=== PATIENT | female | born 1965 | race Caucasian/White ===

== ENCOUNTER 2016-11-18 18:53 | Emergency (ER) | payer BC ==
[~2016-11-18] VITALS: Ht 165.1 cm; Wt 68.2 kg
[2016-11-18 19:01] VITALS: Ht 165.1 cm; Wt 68.2 kg
[2016-11-18 20:33] LABS: BASO % 0.5 %; BASO ABS # 0.03 K/uL (0-0.2); COMPLETE YES; EOS % 2.9 %; HEMATOCRIT 36.2 % (37-47); IG% 0.3 %; LYMPH % 30.3 %; LYMPH ABS # 1.85 K/uL (1.2-3.4); MEAN CORPUSCULAR HEMOGLOBIN 30.2 pg (25-34); MEAN CORPUSCULAR HGB CONC 33.1 g/dl (32-36); MEAN PLATELET VOLUME 9.9 fL (7.4-10.4); MONO % 13.6 %; NEUT % 52.4 %; PLATELET COUNT 245 K/uL (130-400); RED BLOOD COUNT 3.98 M/uL (4.2-5.4); WHITE BLOOD COUNT 6.11 K/uL (4.8-10.8)
[2016-11-18 20:38] VITALS: O2SAT 100
[2016-11-18 20:53] LABS: ALT/SGPT 21 U/L (12-78); BLOOD UREA NITROGEN 15 mg/dl (7-18); BUN/CREATININE RATIO 13.5 (10-20); CALCIUM 8.6 mg/dl (8.5-10.1); CARBON DIOXIDE 25 mmol/L (21-32); CHLORIDE 104 mmol/L (98-107); GLUCOSE 79 mg/dl (70-99); POTASSIUM 3.4 mmol/L (3.5-5.1); SODIUM 138 mmol/L (136-145)
--- NOTE | 2016-11-18 20:56 | DIAGNOSTIC IMAGING REPORT ---
CHEST ONE VIEW PORTABLE CLINICAL HISTORY: Chest pain. COMPARISON STUDY: No previous studies for comparison. FINDINGS: There is a 1 cm nodular density within the left mid to upper lung. Lungs are otherwise clear. Pulmonary vascularity is normal. There is no pneumothorax or pleural effusion. Cardiomediastinal silhouette is normal. IMPRESSION: 1 cm nodular opacity within the mid to upper left lung. This may be artifactual although a pulmonary nodule or minimal airspace disease could appear similar. Follow-up PA and shallow oblique radiographs of the chest are recommended to exclude a pulmonary nodule. Electronically signed by: Stepan Thornton M.D. 11/18/2016 8:54 PM Dictated Date/Time: 11/18/2016 8:52 PM
[2016-11-18 20:57] LABS: POINT OF CARE TROPONIN I < 0.030 ng/ml (0-0.045)
[2016-11-18 20:58] LABS: ALKALINE PHOSPHATASE 59 U/L (45-117); AST/SGOT 20 U/L (15-37); CKMB/CK RATIO 1.3 (0-3.0)
[2016-11-18 21:03] LABS: PREG INTERNAL NEGATIVE QC NEG CLEAR BACKGROUND; PREG INTERNAL POSITIVE QC POS CONTROL LINE
[2016-11-18] MEDS ORDERED: OPTIRAY 320 IV PRN (21:45)
--- NOTE | 2016-11-18 22:45 | DIAGNOSTIC IMAGING REPORT ---
CT ANGIOGRAPHY OF THE CHEST, PULMONARY EMBOLUS PROTOCOL CLINICAL HISTORY: Left-sided chest pain. Elevated d-dimer. COMPARISON STUDY: Chest radiograph November 18, 2016. TECHNIQUE: Following IV administration of 99 mL of Optiray-320, helical axial images of the chest were obtained utilizing the pulmonary embolus protocol. Maximal intensity projections and sagittal and coronal reformats were viewed on an independent 3D workstation. IV contrast was administered without complication. A dose lowering technique was utilized adhering to the principles of ALARA. CT DOSE: 247.05 mGy.cm FINDINGS: No pulmonary emboli are identified. There is no evidence of thoracic aortic dissection. The size of the heart is normal. There is no pericardial effusion. No enlarged axillary, mediastinal or hilar lymph nodes are present. Note is made of an ill-defined 1 cm subpleural nodule within left upper lobe shown on image 209 of 321. There are mild tree-in-bud nodules within the right lower lobe with scattered additional ill-defined right lower lobe nodules. The central airways are patent. No pneumothorax or pleural effusion is present. Bony thorax and upper abdomen are unremarkable. IMPRESSION: 1. No pulmonary emboli identified. 2. 1 cm irregular subpleural left upper lobe nodule. This could be infectious or neoplastic. A follow-up chest CT in one month is recommended given the possibility of a neoplasm. 3. Mild tree-in-bud nodules within the right lower lobe which suggest a mild infectious bronchiolitis. Electronically signed by: Stepan Thornton M.D. 11/18/2016 10:44 PM Dictated Date/Time: 11/18/2016 10:34 PM
[2016-11-19] MEDS ORDERED: AZIT250T PO (00:15)
[2016-11-19] MEDS ORDERED: AZITHROMYCIN 250 MG TAB PO ONE (00:15)
[2016-11-19 00:44] VITALS: BP 114/71; PULSE 72; TEMP 36.6; O2SAT 100
--- NOTE | 2016-11-19 03:04 | EMERGENCY ROOM VISIT NOTE ---
History Report prepared by Kim: Brenden Patel Under the Supervision of: Dr. Srinivasan Silva M.D. First contact with patient: 20:22 Chief Complaint: CHEST PAIN Stated Complaint: CHEST TIGHTNESS AND OCCASIONAL PAIN IN LEFT Nursing Triage Summary: Patient c/o of continous chest pain since 6 pm. Denies SOB, n/v/d. History of Present Illness The patient is a 50 year old female who presents to the Emergency Room with complaints of chest pain that started at 1730. The patient rates her pain as a 5 /10 in severity. She describes the pain as a pressure and dull ache. She states that she was playing [employer] yesterday, but denies any injury. The patient states that today she dropped her daughter off at the bus stop around 1730 and then had an alcoholic beverage. The patient states that she started to feel ill and experienced chest pain, sporadic left arm pain, and neck pain following drinking. She states that the pain started as a pressure then turned into a pain. The patient admits that the pain is now resolved, but she can feel a dull ache when moving her arm. The patient admits to a cough for the past several weeks. She admits that her PCP is Dr. Ellis of [facility] and she sees Dr. Schaffer , Cardiology for her history of PFO, which she admits is still open, and occasionally experiences palpitations. The patient denies any history of hypertension, diabetes, hyperlipidemia, and a family history of heart problems. She denies smoking and frequent exercise, but admits that she walks around frequently. The patient states that she has been stress lately due to her job as an operation person for the [employer], recent memorial for her recently mother, and her daughters being away from home. The patient denies recent travel, arm pain, jaw pain, and chest pain upon exertion in the last month, LOC, headache, fevers, chills, diaphoresis, visual changes, breathing difficulties, nausea, vomiting, abdominal pain, back pain, melena, hematochezia , urinary symptoms, numbness, weakness, lymphadenopathy, rash, or other complaints. Source of History: patient Onset: 1730 Position: chest Symptom Intensity: 5/10 Quality: ache, pressure Timing: resolved Associated Symptoms: + neck pain Review of Systems See HPI for pertinent positives and negatives. A total of ten systems were reviewed and were otherwise negative. Past Medical & Surgical Medical Problems: (1) PFO (patent foramen ovale) Family History Patient reports no known family medical history. Social History Smoking Status: Former Smoker Alcohol Use: occasionally Marital Status: Housing Status: lives with family Occupation Status: employed Current/Historical Medications Scheduled Azithromycin (Zithromax), 250 MG PO DAILY Allergies Coded Allergies: Promethazine (Unverified Adverse Reaction, Unknown, 04/28/09) Physical Exam Vital Signs Date Time Temp Pulse Resp B/P (MAP) Pulse Ox O2 Delivery O2 Flow Rate FiO2 11/19/16 00:44 36.6 72 18 114/71 100 11/18/16 23:39 66 18 108/71 99 Room Air 11/18/16 21:50 61 21 117/74 100 Room Air 11/18/16 20:38 100 11/18/16 20:16 65 108/82 100 11/18/16 20:11 67 11/18/16 19:03 99 Room Air 11/18/16 19:01 36.6 71 18 124/78 99 Room Air Physical Exam GENERAL: Awake, alert, well-appearing, in no distress HENT: Normocephalic, atraumatic. Oropharynx unremarkable. EYES: Normal conjunctiva. Sclera non-icteric. NECK: Supple. No nuchal rigidity. FROM. No JVD. RESPIRATORY: Clear to auscultation. CARDIAC: Regular rate, normal rhythm. Extremities warm and well perfused. Pulses equal. ABDOMEN: Soft, non-distended. No tenderness to palpation. No rebound or guarding. No masses. RECTAL: Deferred. MUSCULOSKELETAL: Chest examination reveals no tenderness. The back is symmetrical on inspection without obvious abnormality. There is no CVA tenderness to palpation. No joint edema. LOWER EXTREMITIES: Calves are equal size bilaterally and non-tender. No edema. No discoloration. NEURO: Normal sensorium. No sensory or motor deficits noted. SKIN: No rash or jaundice noted. Medical Decision & Procedures ER Provider Diagnostic Interpretation: Radiology results as stated below per my review and radiologist interpretation: CHEST ONE VIEW PORTABLE CLINICAL HISTORY: Chest pain. COMPARISON STUDY: No previous studies for comparison. FINDINGS: There is a 1 cm nodular density within the left mid to upper lung. Lungs are otherwise clear. Pulmonary vascularity is normal. There is no pneumothorax or pleural effusion. Cardiomediastinal silhouette is normal. IMPRESSION: 1 cm nodular opacity within the mid to upper left lung. This may be artifactual although a pulmonary nodule or minimal airspace disease could appear similar. Follow-up PA and shallow oblique radiographs of the chest are recommended to exclude a pulmonary nodule. Electronically signed by: Stepan Thornton M.D. 11/18/2016 8:54 PM Dictated Date/Time: 11/18/2016 8:[address] ANGIOGRAPHY OF THE CHEST, PULMONARY EMBOLUS PROTOCOL CLINICAL HISTORY: Left-sided chest pain. Elevated d-dimer. COMPARISON STUDY: Chest radiograph November 18, 2016. TECHNIQUE: Following IV administration of 99 mL of Optiray-320, helical axial images of the chest were obtained utilizing the pulmonary embolus protocol. Maximal intensity projections and sagittal and coronal reformats were viewed on an independent 3D workstation. IV contrast was administered without complication. A dose lowering technique was utilized adhering to the principles of ALARA. CT DOSE: 247.05 mGy.cm FINDINGS: No pulmonary emboli are identified. There is no evidence of thoracic aortic dissection. The size of the heart is normal. There is no pericardial effusion. No enlarged axillary, mediastinal or hilar lymph nodes are present. Note is made of an ill-defined 1 cm subpleural nodule within left upper lobe shown on image 209 of 321. There are mild tree-in-bud nodules within the right lower lobe with scattered additional ill-defined right lower lobe nodules. The central airways are patent. No pneumothorax or pleural effusion is present. Bony thorax and upper abdomen are unremarkable. IMPRESSION: 1. No pulmonary emboli identified. 2. 1 cm irregular subpleural left upper lobe nodule. This could be infectious or neoplastic. A follow-up chest CT in one month is recommended given the possibility of a neoplasm. 3. Mild tree-in-bud nodules within the right lower lobe which suggest a mild infectious bronchiolitis. Electronically signed by: Stepan Thornton M.D. 11/18/2016 10:44 PM Dictated Date/Time: 11/18/2016 10:34 PM Laboratory Results 11/18/16 20:14 Red Blood Count 3.98, Mean Corpuscular Volume 91.0, Mean Corpuscular Hemoglobin 30.2, Mean Corpuscular Hemoglobin Concent 33.1, Mean Platelet Volume 9.9, Neutrophils (%) (Auto) 52.4, Lymphocytes (%) (Auto) 30.3, Monocytes (%) (Auto) 13.6, Eosinophils (%) (Auto) 2.9, Basophils (%) (Auto) 0.5, Neutrophils # (Auto ) 3.20, Lymphocytes # (Auto) 1.85, Monocytes # (Auto) 0.83, Eosinophils # (Auto ) 0.18, Basophils # (Auto) 0.03 11/18/16 20:14 Test 11/18/16 20:14 11/18/16 20:39 11/18/16 23:38 White Blood Count 6.11 K/uL (4.8-10.8) Red Blood Count 3.98 M/uL (4.2-5.4) Hemoglobin 12.0 g/dL (12.0-16.0) Hematocrit 36.2 % (37-47) Mean Corpuscular Volume 91.0 fL (80-100) Mean Corpuscular Hemoglobin 30.2 pg (25-34) Mean Corpuscular Hemoglobin Concent 33.1 g/dl (32-36) Platelet Count 245 K/uL (130-400) Mean Platelet Volume 9.9 fL (7.4-10.4) Neutrophils (%) (Auto) 52.4 % Lymphocytes (%) (Auto) 30.3 % Monocytes (%) (Auto) 13.6 % Eosinophils (%) (Auto) 2.9 % Basophils (%) (Auto) 0.5 % Neutrophils # (Auto) 3.20 K/uL (1.4-6.5) Lymphocytes # (Auto) 1.85 K/uL (1.2-3.4) Monocytes # (Auto) 0.83 K/uL (0.11-0.59) Eosinophils # (Auto) 0.18 K/uL (0-0.5) Basophils # (Auto) 0.03 K/uL (0-0.2) RDW Standard Deviation 43.1 fL (36.4-46.3) RDW Coefficient of Variation 13.0 % (11.5-14.5) Immature Granulocyte % (Auto) 0.3 % Immature Granulocyte # (Auto) 0.02 K/uL (0.00-0.02) Anion Gap 9.0 mmol/L (3-11) Est Creatinine Clear Calc Drug Dose 55.7 ml/min Estimated GFR () 68.3 Estimated GFR (Non- 58.9 BUN/Creatinine Ratio 13.5 (10-20) Calcium Level 8.6 mg/dl (8.5-10.1) Total Bilirubin 0.2 mg/dl (0.2-1) Direct Bilirubin < 0.1 mg/dl (0-0.2) Aspartate Amino Transf (AST/SGOT) 20 U/L (15-37) Alanine Aminotransferase (ALT/SGPT) 21 U/L (12-78) Alkaline Phosphatase 59 U/L (45-117) Total Creatine Kinase 98 U/L (26-192) Creatine Kinase MB 1.3 ng/ml (0.5-3.6) Creatine Kinase MB Ratio 1.3 (0-3.0) Total Protein 7.8 gm/dl (6.4-8.2) Albumin 3.5 gm/dl (3.4-5.0) Lipase 238 U/L (73-393) Human Chorionic Gonadotropin, Qual NEG (NEG) Bedside D-Dimer > 450 ng/mlFEU (0-450) Bedside Troponin I < 0.030 ng/ml (0-0.045) Laboratory results reviewed by me Medications Administered Medications (Trade) Dose Ordered Sig/Kvng Route Start Time Stop Time Status Last Admin Dose Admin Azithromycin (Zithromax Tab) 500 mg NOW ONCE PO 11/19/16 00:15 11/19/16 00:16 DC 11/19/16 00:41 500 MG ECG Indication: chest pain Rate (beats per minute): 63 Rhythm: normal sinus Findings: no acute ischemic change, no ectopy, other (IRBB) Comparison ECG Date: 11/18/16 Repeat Change: no significant change ED Course 2045: The patient was evaluated in room B03B. A complete history and physical exam was performed. 2131: I reevaluated the patient and she is feeling better. 2357: I reevaluated the patient and had a long discussion on her results and treatment plan. 0015: Ordered Azithromycin 500 mg PO. Medical Decision Triage Nursing notes reviewed. The patient's presentation and history were concerning for chest pain. Etiologies such as musculoskeletal, pleurisy, cardiac ischemia, aortic dissection, pulmonary embolism, pneumonia, pneumothorax, infections, gastrointestinal, as well as others were entertained. The patient was evaluated. Clinically she looked well. Her physical examination was benign. ECG was negative for ischemic change. Chest x-ray performed and was as above. The patient had blood over obtained and this showed an unremarkable CBC, chemistry panel, LFTs, test, and cardiac markers. The patient's d-dimer was borderline elevated. I discussed further imaging with the patient and she was in agreement. The patient underwent CT imaging of the chest. She also had a repeat ECG and cardiac troponin performed. The ECG and troponin were negative. The patient's CT scan as noted above showed a concerning left sided pulmonary nodule. I reviewed this with the patient in detail The need for urgent follow-up. As the patient is doing well and has no issues on cardiac workup and no evidence of pulmonary embolism I believe she is safe for discharge from a cardiac standpoint. She did have some inflammatory change in the right lower lung concerning for possible infectious etiology. She has had a moderate cough present. Because of this Zithromax was initiated. If she has any worsening symptoms or issue she will come back to the emergency department. Otherwise the patient is going to call the primary physician this week for follow-up and arrange the additional imaging. By the evaluation outlined above other emergent etiologies such as those listed in the differential, as well as others, were deemed relatively unlikely. The patient was educated about the findings as listed above. All questions were answered and the patient was pleased with the treatment. Return instructions were outlined and the patient was discharged in stable condition. The patient was referred to her PCP for follow-up for a recheck of the current condition. . Medication Reconcilliation Current Medication List: was personally reviewed by me Blood Pressure Screening Patient's blood pressure: Normal blood pressure Impression Primary Impression: Left sided chest pain Additional Impressions: Pneumonitis Pulmonary nodule Scribe Attestation The scribe's documentation has been prepared under my direction and personally reviewed by me in its entirety. I confirm that the note above accurately reflects all work, treatment, procedures, and medical decision making performed by me. Departure Information Dispostion Home / Self-Care Prescriptions Azithromycin (Zithromax) 250 Mg Tab 250 MG PO DAILY, #4 TAB Prov: Srinivasan Silva MD 11/19/16 Referrals Art Ellis M.D. (PCP) Forms Call Back Authorization, HOME CARE DOCUMENTATION FORM, IMPORTANT VISIT INFORMATION Patient Instructions My [facility] Additional Instructions Azithromycin(Zithromax) 250mg: Take one a day for 4 additional days. All antibiotics can cause diarrhea. If this occurs and you feel worse or it does not resolve in 1-2 days follow up with your doctor or return to the Emergency Department as this could be signs of serious underlying problems. Any medication can cause an allergic reaction, stop the pills immediately and return to the ER for rash, hives, breathing difficulties, or swelling. Ibuprofen(Motrin, Advil) may be used for fever or pain. Use 600mg every six hours as needed. Take with food. Avoid using more than 2400mg in a 24 hour period. Do not use 2400mg per day for more than three consecutive days without physician direction. Prolonged inappropriate use can lead to stomach upset or ulcers. And/or Tylenol: Take 1000 mg every 6 hours as needed for pain. Do not take more than 3000 mg in a 24 hour period. Rest and drink plenty of fluids. Avoid strenuous activity until your symptoms resolve and your breathing returns to normal. Return to the ER for chest pain, difficulty breathing, persistent fevers, vomiting, worsening of your condition, or as needed. Follow up with your primary physician tomorrow to schedule an appointment for a recheck of the current condition this week. A stress test is recommended as an outpatient. Also discussed the need for a CT scan in 1 month for evaluation of the 1 cm left sided pulmonary nodule. Follow-up is very important. If you have any difficulty in obtaining follow-up appointments call back to the Emergency Room at [phone] for assistance. Problem Qualifiers
== END 2016-11-19 00:45 | disposition home or self-care (01) ==
LOC: C.EDB 18:55
DX: J18.9 Pneumonia, unspecified organism (principal); R07.89 Other chest pain; R91.1 Solitary pulmonary nodule; Z87.891 Personal history of nicotine dependence; Z88.8 Allergy status to other drugs, medicaments and biological substances

== ENCOUNTER → 2016-12-20 | Outpatient (CLI) | payer BC ==
[~2016-12-20] MED LIST: AZIT250T PO; OPTIRAY 320 IV PRN
--- NOTE | 2016-12-20 10:06 | DIAGNOSTIC IMAGING REPORT ---
CT OF THE CHEST WITH IV CONTRAST CLINICAL HISTORY: SOLITARY PULMONARY NODULE COMPARISON STUDY: 11/18/2016 TECHNIQUE: Following the IV administration of 96 mL of Optiray-320, CT of the thorax was performed from the thoracic inlet to the lung bases. Images are reviewed in the axial, sagittal, and coronal planes. IV contrast was administered without complication. A dose lowering technique was utilized adhering to the principles of ALARA. CT DOSE: 228.28 mGy.cm FINDINGS: Thyroid: Imaged portions of the thyroid gland are normal in appearance. Thoracic aorta: The thoracic aorta is normal in course and caliber, noting standard 3-vessel arch anatomy. No aneurysm or dissection is seen. Pulmonary vasculature: The pulmonary trunk is normal in caliber. There are no central filling defects identified to suggest pulmonary embolus. Note that this examination was not protocoled for the evaluation of pulmonary emboli. HEART: The heart is normal in size and configuration, without pericardial effusion. Lungs and pleural spaces: There is been near complete interval resolution of the previously identified 1 cm subpleural left upper lobe pulmonary nodule. This indicates an inflammatory etiology. There are persistent tree-in-bud nodules within the right lower lobe. The pattern favors an infectious etiology. Two subcentimeter right-sided perinephric fissural nodules, also remain stable. Mediastinum: There is no mediastinal lymphadenopathy. Erika: Clear. Axilla: Clear. Upper abdomen: Partially visualized upper abdominal viscera is within normal limits. Skeletal structures: There are no lytic or blastic osseous lesions. IMPRESSION: 1. Persistent right lower lobe tree-in-bud nodules. The findings are again most consistent with an infectious etiology 2. Near complete interval resolution of the previously identified 1 cm subpleural left upper lobe pulmonary nodule. This indicates an inflammatory etiology. No further follow-up of this nodule is deemed necessary. 3. No new or enlarging pulmonary nodules 4. No evidence of pathologic adenopathy Electronically signed by: Michael Stanley M.D. 12/20/2016 10:05 AM Dictated Date/Time: 12/20/2016 9:59 AM
== END | disposition home or self-care (01) ==
LOC: C.CTS 09:42
PROVIDERS: ATTEND Family Medicine
DX: R91.1 Solitary pulmonary nodule (principal)

== ENCOUNTER → 2017-04-03 | Outpatient (CLI) | payer OTHER ==
[~2017-04-03] MED LIST changes: -OPTIRAY 320 IV PRN
--- NOTE | 2017-04-04 15:06 | MAMMOGRAPHY REPORT ---
BILATERAL FIRST EVER DIGITAL SCREENING MAMMOGRAM TOMOSYNTHESIS WITH CAD: 04/03/2017 CLINICAL HISTORY: Routine screening. Baseline exam. TECHNIQUE: Breast tomosynthesis in addition to standard 2D mammography was performed. Current study was also evaluated with a Computer Aided Detection (CAD) system. COMPARISON: No prior exams were available for comparison. BREAST COMPOSITION: The tissue of both breasts is heterogeneously dense, which may obscure small mas ses. FINDINGS: There is a nodular 8 mm asymmetry seen within the right lateral posterior breast on the CC view only, which may represent normal overlapping fibroglandular tissue although spot compression to mosynthesis views and possible breast ultrasound are recommended for further evaluation. Additionall y, there is an oval partially circumscribed and partially obscured 9 mm mass within the left upper ou ter quadrant, which may represent an intramammary lymph node although ultrasound and possible additio nal spot compression views are recommended given no priors to document stability. The remainder of both breasts demonstrate no suspicious masses, calcifications, or areas of licensed architect ural distortion. IMPRESSION: ACR BI-RADS CATEGORY 0: INCOMPLETE EVALUATION: NEED ADDITIONAL IMAGING EVALUATION Right lateral breast asymmetry and left breast mass, for which additional imaging evaluation is recom mended. The patient will be called to schedule an appointment. Approximately 10% of breast cancers are not detected with mammography. A negative mammographic report should not delay biopsy if a clinically suggestive mass is present. Denice Wood M.D. ah/:04/03/2017 16:29:32 Leasing Specialist: Karen JOHNSON)(Julia), [facility] letter sent: Addl Imaging 0 BI-RADS Code: ACR BI-RADS Category 0: Incomplete Evaluation: Need Additional Imaging Evaluation
== END | disposition home or self-care (01) ==
LOC: C.MAMM 11:27
PROVIDERS: ATTEND Family Medicine
DX: Z12.31 Encounter for screening mammogram for malignant neoplasm of breast (principal); R92.8 Other abnormal and inconclusive findings on diagnostic imaging of breast; N63.20 Unspecified lump in the left breast, unspecified quadrant

== ENCOUNTER → 2017-04-10 | Outpatient (CLI) | payer OTHER ==
--- NOTE | 2017-04-10 15:54 | MAMMOGRAPHY REPORT ---
UNILATERAL RIGHT DIGITAL DIAGNOSTIC MAMMOGRAM TOMOSYNTHESIS AND TARGETED BILATERAL ULTRASOUND: 018 CLINICAL HISTORY: Callback from screening mammogram for right breast asymmetry and left breast mass. TECHNIQUE: Breast tomosynthesis in addition to standard 2D mammography was performed. Spot compress ion right CC and MLO 2-D and tomosynthesis images were obtained. COMPARISON: Comparison is made to exam dated: 04/03/2017 mammogram - [facility]. BREAST COMPOSITION: The tissue of the right breast is heterogeneously dense, which may obscure small masses. FINDINGS: The previously described nodular 8 mm asymmetry seen within the right lateral breast on th e cc view partially effaces on the spot compression views and has the appearance more of normal fibro glandular tissue on the additional images. No discrete mass is seen in this region on the additional views. Targeted ultrasound was performed of the right lateral breast in the region of the mammographic asymm etry seen on one view only. Multiple scattered anechoic benign cysts were seen in the right lateral breast, including a 5 x 4 mm simple cyst in the right 10:00 breast, 4 cm from the nipple, and 2 adjac ent 3 and 4 mm cysts in the right breast at 11:00, 2 cm from the nipple. In the right breast at 9:00 , 6 cm from the nipple, there is an oval circumscribed isoechoic solid appearing 4 x 6 x 4 mm mass. Targeted ultrasound was performed of the left upper outer quadrant laterally in the region of the par tially circumscribed 9 mm mass seen on the screening mammogram. Multiple cysts are seen within the l eft lateral breast during the exam, including a 6 mm simple cyst in the left breast at 1:00, 5 cm fro m the nipple and a 5 mm anechoic benign simple cyst in the left breast at 1:00, 4 cm from the nipple. Additionally, there is an anechoic 4 x 5 mm simple cyst in the left breast at 1:30, 5 cm from the n ipple. One of these cysts likely corresponds with the mammographic mass, likely the mass in the left 1:00 breast, 5 cm from the nipple. In the left breast at 1:00 periareolar region, there is an oval hypoechoic solid appearing circumscribed parallel 9 x 5 x 8 mm mass. Additionally, there is a slight ly hypoechoic solid appearing circumscribed lobulated 7 x 6 x 4 mm mass in the left breast at 2:00, 5 cm from the nipple. 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 IMPRESSION: ACR-BI-RADS CATEGORY 3: PROBABLY BENIGN, TARGETED ULTRASOUND ACR-BI-RADS CATEGORY 3: PRO BABLY BENIGN 1. The right lateral breast asymmetry partially effaces on the additional views, and is probably gorge ign and likely represents normal fibroglandular tissue. Recommend follow-up diagnostic tomosynthesis mammograms of the right breast in 6 months to confirm stability. 2. Multiple small benign cysts seen in bilateral lateral breasts on ultrasound. 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 Recommend follow-up bi lateral diagnostic tomosynthesis mammograms and repeat ultrasound in 6 months to confirm stability, g iven no priors for comparison. The patient has been verbally notified of the results. Approximately 10% of breast cancers are not detected with mammography. A negative mammographic report should not delay biopsy if a clinically suggestive mass is present. Denice Wood M.D. ah/:04/10/2017 11:06:45 Science Tutor: Kylee JOHNSON)(Julia), [facility] letter sent: Follow Up Recommended 3 BI-RADS Code: ACR-BI-RADS Category 3: Probably Benign Ultrasound BI-RADS: ACR-BI-RADS Category 3: Pr obably Benign
== END | disposition home or self-care (01) ==
LOC: C.MAMM 08:43
PROVIDERS: ATTEND Family Medicine
DX: R92.8 Other abnormal and inconclusive findings on diagnostic imaging of breast (principal); N64.89 Other specified disorders of breast; N63.20 Unspecified lump in the left breast, unspecified quadrant

== ENCOUNTER 2017-05-11 03:57 | Emergency (ER) | payer OTHER ==
[~2017-05-11] VITALS: Ht 172.7 cm; Wt 64.9 kg
[2017-05-11 04:02] VITALS: TEMP 36.8; Ht 172.7 cm; Wt 64.9 kg
[2017-05-11] MEDS ORDERED: ASPI325T39 PO (04:28)
[2017-05-11] MEDS ORDERED: HYDROCODONE/HOMATROPINE SYRUP 5MG/1.5MG 5ML UDP PO STA (04:33)
--- NOTE | 2017-05-11 04:38 | EMERGENCY ROOM VISIT NOTE ---
History Report prepared by Kim: Colin Balderrama Under the Supervision of: Dr. Marley Hall D.O. First contact with patient: 04:15 Chief Complaint: COUGH Stated Complaint: NON STOP COUGH History of Present Illness The patient is a 51 year old female who presents to the Emergency Room with complaints of intermittent coughing that began recently. Patient has associated symptoms of cold-like symptoms, abdominal pain, chest pain, and fatigue. She states that it feel like she pulled a muscle in her chest. She adds that this is the "quietest she has been in 6 hours". Patient states that she has taken Robitussin, NyQuil, and cough drops with no relief of the symptoms. She denies nausea, vomiting, leg cramping, or leg swelling. Patient states that she got the flu shot this year. She went to the urgent clinic 5 days ago. They suggested umih-mhr-iirywkt medications. Patient adds that she is able to take codeine. Pertinent past medical history includes a PFO. She states she takes 325mg of Aspirin for the condition. Source of History: patient Onset: Recent Timing: intermittent Associated Symptoms: + chest pain, + abdominal pain, + fatigue, No nausea, No vomiting Note: Patient denies leg swelling and leg cramping. Review of Systems See HPI for pertinent positives & negatives. A total of 10 systems reviewed and were otherwise negative. Past Medical & Surgical Medical Problems: (1) PFO (patent foramen ovale) Family History Patient reports no known family medical history. Social History Smoking Status: Never Smoker Alcohol Use: occasionally Marital Status: Housing Status: lives with family Occupation Status: employed Current/Historical Medications Scheduled Aspirin (Aspirin Ec), 325 MG PO DAILY Hydrocodone W/ Homatropine (Hycodan 5/1.5MG 5 Ml), 5 ML PO Q6 Allergies Coded Allergies: Promethazine (Unverified Adverse Reaction, Unknown, 04/28/09) Uncoded Allergies: SULFA (Allergy, Unknown, N/V, 05/11/17) SCALLOPS (Adverse Reaction, Intermediate, N/V, 05/11/17) Physical Exam Vital Signs Date Time Temp Pulse Resp B/P (MAP) Pulse Ox O2 Delivery O2 Flow Rate FiO2 05/11/17 05:39 92 20 112/63 97 05/11/17 04:37 97 Room Air 05/11/17 04:02 36.8 100 20 112/63 97 Room Air Physical Exam HEENT: Head - normocephalic and atraumatic Pupils are equal, round, and reactive to light. Extraocular eye muscles are intact, and sclera are anicteric. Nose - moist nasal mucosa without discharge. Mouth - moist buccal mucosa. Oropharynx is nonerythematous and there is no tonsillar exudate or edema noted. Neck: Supple; no JVD, nuchal rigidity, cervical lymphadenopathy. Heart: Regular rate and rhythm. There is a normal S1 and S2 with no murmurs, clicks, or gallops appreciated. Lungs: Clear to auscultation bilaterally with no wheezes, rales, or rhonchi. Abdomen: Soft, completely nontender, nondistended, with good bowel sounds. There are no palpable pulsatile masses or hepatosplenomegaly. There is no guarding, rigidity, or rebound noted. Extremities: No evidence of cyanosis, clubbing, or edema. There are easily palpable peripheral pulses. Skin: warm and dry with good turgor and no rashes. Medical Decision & Procedures ER Provider Diagnostic Interpretation: Radiology results as stated below per my interpretation: Chest X-Ray: Unremarkable, no pulmonary infiltrate or consolidation. Laboratory Results Test 05/11/17 04:37 Influenza Type A Antigen Neg for Influ A (NEG) Influenza Type B Antigen Neg for Influ B (NEG) Laboratory results per my review. Medications Administered Medications (Trade) Dose Ordered Sig/Kvng Route Start Time Stop Time Status Last Admin Dose Admin Hydrocodone Bit/ Homatropine Methylb (Hycodan Syrup) 5 ml NOW STAT PO 05/11/17 04:33 05/11/17 04:34 DC 05/11/17 04:38 5 ML Hydrocodone Bit/ Homatropine Methylb (Hycodan Elix Homepack 5/1.5MG/ 5ML) 1 homepack UD ONCE PO 05/11/17 05:45 05/11/17 05:46 DC 05/11/17 05:39 1 HOMEPACK Procedure Hycodan Syrup 5ml PO ED Course 0425: Past medical records reviewed. The patient was evaluated in room A3. A complete history and physical exam was performed. Influenza swab was obtained. Chest x-ray was obtained and was unremarkable. 0433: Hycodan Syrup 5ml PO 0510: Upon reevaluation, the patient is feeling much better. I discussed findings and results with her. She verbalized agreement of the treatment plan. She was discharged home. 1830: While completing the patient's chart, I reviewed the radiologist's interpretation of the patient's chest x-ray. There was concern for the possibility of a pulmonary infiltrate/pneumonia. Because of the patient's significant history of cough over the past week, we will start her on an antibiotic. The charge nurse will contact the patient and calling a [employer] pack for her and encouraged her to follow-up with her PCP for any persistent symptoms. Medical Decision The patient is a 51 year old female who presents to the ED with coughs. Differential diagnosis includes bronchitis, pneumonia, influenza, and URI. Lab results show influenza negative. This is a 51-year-old female patient presents to the emergency department with persistent cough to the point that she is near vomiting. She also describes significant rib pain secondary to coughing. O2 saturations were stable. However, the patient had a chest x-ray which had some haziness in the right lower lung according to radiology which was concerning for possible pneumonia. For this reason, the patient will be contacted and started on an antibiotic. She will follow-up with her PCP. While here in the emergency department, the patient received a dose of Hycodan which gave significant relief to her cough as well as the rib pain. The patient was given a prescription of Hycodan [place] Drug Monitoring Program Search Results: no issues identified Medication Reconcilliation Current Medication List: was personally reviewed by me Blood Pressure Screening Patient's blood pressure: Normal blood pressure Blood pressure disposition: Did not require urgent referral Impression Primary Impression: Right lower lobe pneumonia Scribe Attestation The scribe's documentation has been prepared under my direction and personally reviewed by me in its entirety. I confirm that the note above accurately reflects all work, treatment, procedures, and medical decision making performed by me. Departure Information Dispostion Home / Self-Care Prescriptions Hydrocodone W/ Homatropine (HYCODAN 5/1.5MG 5 ML) 1 Syp Syp 5 ML PO Q6, #100 ML Prov: Marley Hall D.O. 05/11/17 Referrals Art Ellis M.D. (PCP) Forms HOME CARE DOCUMENTATION FORM, IMPORTANT VISIT INFORMATION Patient Instructions Bronchitis Acute, [employer] Additional Instructions Rest. Keep yourself well-hydrated. Take hycodan cough syrup - 5ml every 6 hours for cough Follow up with PCP if syptoms not improving Problem Qualifiers Primary Impression: Right lower lobe pneumonia Pneumonia type: due to unspecified organism Qualified Codes: J18.1 - Lobar pneumonia, unspecified organism
[2017-05-11 05:03] LABS: INFLUENZA B ANTIGEN Neg for Influ B (NEG)
[2017-05-11] MEDS ORDERED: HYDR5SYP11 PO (05:24)
[2017-05-11 05:39] VITALS: BP 112/63; PULSE 92; O2SAT 97
[2017-05-11] MEDS ORDERED: HYCODAN 60ML BOTTLE HOMEPACK PO ONE (05:45)
--- NOTE | 2017-05-11 08:49 | DIAGNOSTIC IMAGING REPORT ---
CHEST 2 VIEWS ROUTINE CLINICAL HISTORY: Cough. COMPARISON STUDY: Chest CT December 20, 2016. FINDINGS: There is hazy right lower lung medial opacity. Left lung is clear. Cardiac size is normal. Mediastinal contours are normal. There is no evidence for pulmonary edema. IMPRESSION: Minimal hazy right lower lung opacity. This may reflect a small focus of pneumonia or atelectasis. Radiographic follow-up is recommended. Electronically signed by: Stepan Thornton M.D. 05/11/2017 8:47 AM Dictated Date/Time: 05/11/2017 8:45 AM
== END 2017-05-11 05:41 | disposition home or self-care (01) ==
LOC: C.EDB 03:58 → C.EDA 05:41
DX: J18.9 Pneumonia, unspecified organism (principal); Z79.82 Long term (current) use of aspirin; Z88.8 Allergy status to other drugs, medicaments and biological substances; Z88.2 Allergy status to sulfonamides; Z91.013 Allergy to seafood

== ENCOUNTER → 2017-06-23 | Outpatient (CLI) | payer OTHER ==
[~2017-06-23] MED LIST changes: +ASPI325T39 PO; -AZIT250T PO; +OPTIRAY 320 IV PRN
--- NOTE | 2017-06-23 12:09 | DIAGNOSTIC IMAGING REPORT ---
CT OF THE CHEST WITH IV CONTRAST CLINICAL HISTORY: Solitary pulmonary nodule COMPARISON STUDY: 12/20/2016 TECHNIQUE: Following the IV administration of 107 mL of Optiray-320, CT of the thorax was performed from the thoracic inlet to the lung bases. Images are reviewed in the axial, sagittal, and coronal planes. IV contrast was administered without complication. A dose lowering technique was utilized adhering to the principles of ALARA. CT DOSE: 186.00 mGycm FINDINGS: Thyroid: Imaged portions of the thyroid gland are normal in appearance. Thoracic aorta: The thoracic aorta is normal in course and caliber, noting standard 3-vessel arch anatomy. No aneurysm or dissection is seen. Pulmonary vasculature: The pulmonary trunk is normal in caliber. There are no central filling defects identified to suggest pulmonary embolus. Note that this examination was not protocoled for the evaluation of pulmonary emboli. HEART: The heart is normal in size and configuration, without pericardial effusion. Lungs and pleural spaces: No pleural effusions are visualized. There are persistent tree-in-bud nodules within the right lower lobe. Since the prior study, the patient has developed left lower lobe tree-in-bud nodularity. There is a new 17 mm groundglass opacity within the right lower lobe. There are new right middle lobe opacities, also likely inflammatory. Multiple additional scattered nodules are present. The distribution strongly favors an inflammatory/infectious etiology. Mediastinum: There is no mediastinal lymphadenopathy. Erika: There is no evidence of pathologic hilar adenopathy Axilla: There is no evidence of pathologic axillary lymphadenopathy. Asymmetric right-sided breast tissue remains stable Upper abdomen: Partially visualized upper abdominal viscera is within normal limits. Skeletal structures: There are no lytic or blastic osseous lesions. IMPRESSION: 1. Persistent right lower lobe tree-in-bud opacities. Interval development of additional pulmonary nodules, groundglass opacities, and additional tree-in-bud opacities. The distribution strongly favors an inflammatory/infectious etiology. 2. No pleural effusions 3. No evidence of pathologic adenopathy. Electronically signed by: Michael Stanley M.D. 06/23/2017 12:08 PM Dictated Date/Time: 06/23/2017 11:54 AM
== END | disposition home or self-care (01) ==
LOC: C.CTS 11:29
PROVIDERS: ATTEND Family Medicine
DX: R91.1 Solitary pulmonary nodule (principal)

== ENCOUNTER → 2017-10-09 | Outpatient (CLI) | payer OTHER ==
[~2017-10-09] MED LIST changes: -OPTIRAY 320 IV PRN
--- NOTE | 2017-10-09 16:07 | MAMMOGRAPHY REPORT ---
BILATERAL DIGITAL DIAGNOSTIC MAMMOGRAM TOMOSYNTHESIS WITH CAD AND TARGETED BILATERAL ULTRASOUND: 10/09 CLINICAL HISTORY: Short interval follow-up of bilateral breast masses. The patient reports no new lum ps or other complaints. TECHNIQUE: The study was acquired using full field digital technology and interpreted from soft copy. Breast tomosynthesis in addition to standard 2D mammography was performed. Current study was also ev aluated with a Computer Aided Detection (CAD) system. Bilateral CC and MLO 2D and tomosynthesis imag es were obtained. COMPARISON: Comparison is made to exams dated: 04/10/2017 mammogram, 04/03/2017 mammogram, and 04/10/19 18 ultrasound - [facility]. BREAST COMPOSITION: The tissue of both breasts is heterogeneously dense, which may obscure small mass es. FINDINGS: The previously described nodular asymmetry within the right lateral posterior breast is les s prominent and no longer clearly evident on the current exam, and is therefore considered benign. T here is a partially circumscribed and partially obscured mass measuring approximately 10 mm within th e left breast at approximately 11 to 12:00 on the cc tomosynthesis images, which does not appear sign ificantly changed although ultrasound was performed. The remainder of both breasts are stable compar ed to prior exams, without suspicious masses, calcifications, or areas of architectural distortion no chloe. Targeted ultrasound was performed of the areas of the previously seen masses for which follow-up was recommended. In the right 9:30 breast, approximately 6 cm from the nipple, again noted is a hypoecho ic circumscribed solid mass which measures 5 x 4 x 5 mm and is not significantly changed compared to the March 2017 exam. In the left 1:00 periareolar breast, again noted is an oval circumscribed par allel slightly hypoechoic mass versus normal fat lobule which measures 11 x 5 x 8 mm and is not signi ficantly changed compared to the March 2017 exam. In the left 2:00 breast, 5 cm from the nipple, a gain noted is a circumscribed parallel hypoechoic 7 x 6 x 3 mm mass, which is not significantly alvarado ed. In the left 11:00 breast, 2 cm from the nipple, there is a circumscribed anechoic mass with a fe w thin internal septations which measures 8 x 4 mm. This corresponds with the partially circumscribe d mammographic mass and is consistent with a benign cyst. The hypoechoic masses are stable compared to the March 2017 exam and are probably benign. IMPRESSION: ACR-BI-RADS CATEGORY 3: PROBABLY BENIGN, ULTRASOUND ACR-BI-RADS CATEGORY 3: PROBABLY LUIS A GN Small circumscribed hypoechoic masses in the right 9:00 and left 1:00 and 2:00 breast are stable comp ared to the March 2017 exam and are probably benign. Recommend bilateral diagnostic tomosynthesis mammograms and repeat targeted ultrasound in 6 months to confirm one year of stability.(04/10/2018) The patient has been verbally notified of the results. Some breast cancers are not detected with mammography. A negative mammographic report should not ellie y biopsy if a clinically suggestive mass is present. Denice Wood M.D. ah/:10/09/2017 08:47:38 Account Manager Education: RT Hussain(R)(M), [facility]; Denice Wood MD, [facility] letter sent: Follow Up Recommended 3 OVERALL STUDY BIRADS: 3 Probably benign
== END | disposition home or self-care (01) ==
LOC: C.MAMM 07:44
PROVIDERS: ATTEND Family Medicine
DX: N63.10 Unspecified lump in the right breast, unspecified quadrant (principal); N63.20 Unspecified lump in the left breast, unspecified quadrant